=== PATIENT | female | born 1965 | race Caucasian/White ===

== ENCOUNTER 2018-12-06 10:38 | Emergency (ER) | payer BC ==
[~2018-12-06] VITALS: Ht 165.1 cm; Wt 69.4 kg
--- OUTSIDE RECORDS SUMMARY | 2018-12-06 10:41 | XMS REPORT | Clinical Summary ---
Author Author [facility] Organization [facility] Address Unknown Phone Unavailable Care Team Providers Care Curb Supervisor Name Role Phone Alina Agustin MD PCP Allergies Not on File Medications Not on file Active Problems Not on file Encounters Care Team Description Date Type Specialty Juana Foster MD Status post biopsy 05/01/2018 Hospital Radiology Encounter Juana Foster MD Breast lump on right side at 2 o'clock position 05/01/2018 Hospital Radiology Encounter Juana Foster MD Breast lump on right side at 2 o'clock position (Primary Dx) 04/23/2018 Transcribe Access Orders Juana Foster MD Abnormal mammogram 04/22/2018 Hospital Radiology Encounter Juana Foster MD Abnormal mammogram 04/22/2018 Hospital Radiology Encounter Juana Foster MD Abnormal mammogram (Primary Dx) 04/21/2018 Transcribe Access Orders Juana Foster MD Screening for osteoporosis 04/18/2018 Hospital Radiology Encounter Juana Foster MD Screening breast examination 04/18/2018 Hospital Radiology Encounter Juana Foster MD Screening for osteoporosis (Primary Dx); Screening breast examination 04/10/2018 Transcribe Access Orders after 12/05/2017 Social History Date Tobacco Use Types Packs/Day Years Used Never Assessed Sex Assigned at Date Recorded Not on file Industry Job Start Date Occupation Not on file Not on file Not on file Travel End Travel History Travel Start No recent travel history available. Last Filed Vital Signs Not on file Plan of Treatment Health Maintenance Due Date Last Done Comments CERVICAL CANCER SCREENING 1986 COLON CANCER SCREENING 2015 SHINGLES VACCINES (1 of 2015 2) INFLUENZA VACCINE 06/11/2018 BREAST CANCER SCREENING 04/22/2020 04/22/2018, 04/22/2018, 04/22/2018, Additional history exists Procedures Comments Procedure Name Priority Date/Time Associated Diagnosis SURGICAL PATHOLOGY Routine 05/01/2018 REQUEST 11:07 AM CDT MAMMO DIAGNOSTIC BIOPSY Routine 05/01/2018 Status post biopsy FOLLOW UP (NO CHARGE) 10:54 AM CDT US BREAST BIOPSY RIGHT Routine 05/01/2018 Breast lump on right side 10:28 AM CDT at 2 o'clock position US BREAST COMPLETE Routine 04/22/2018 Abnormal mammogram BILATERAL 9:03 AM CDT MAMMO BREAST DIAGNOSTIC Routine 04/22/2018 Abnormal mammogram TOMOSYNTHESIS RIGHT 8:39 AM CDT BONE DENSITY Routine 04/18/2018 Screening for 3:45 PM CDT osteoporosis MAMMO BREAST SCREEN Routine 04/18/2018 Screening breast TOMOSYNTHESIS BILATERAL 3:30 PM CDT examination after 12/05/2017 Results * Surgical pathology request (05/01/2018 11:07 AM CDT) [facility] DEPARTMENT OF PATHOLOGY AND GENOMIC MEDICINE Surgical pathology report See link below for PDF Lab [facility] DEPARTMENT OF Report PATHOLOGY AND GENOMIC MEDICINE Result status This is Final Report to [facility] DEPARTMENT OF [id number] PATHOLOGY AND GENOMIC MEDICINE Performing Organization Address City/State/Zipcode Phone Number [facility] DEPARTMENT [address] [place] [address] PATHOLOGY AND GENOMIC MEDICINE * Mammo Diagnostic Biopsy Follow Up (No Charge) (05/01/2018 10:54 AM CDT) Narrative Performed At EXAMINATION:US BREAST BIOPSY RIGHT, MAMMO DIAGNOSTIC BIOPSY FOLLOW UP [facility] COMPARISONS:04/22/2018 INDICATION:Right breast 3:00 lesion PROCEDURE: Following a discussion of potential risks, benefits and alternatives, the patient gave verbal and written informed consent for ultrasound-guided core-needle biopsy of the right breast with clip placement. A timeout was performed to verify the patient's name, date of , procedure and laterality. The patient was placed supine in the ultrasound intervention suite and the right breast was sterilely prepped and draped in the usual manner. 6 ml of lidocaine was administered subcutaneously for local anesthesia. Then, under direct and continuous sonographic guidance, a 14 gauge Achieve biopsy needle was advanced to the level of the target mass and a total of 3 core-biopsy specimens were obtained. The specimens were placed directly in Formalin for further pathologic review and a ribbon shaped biopsy marker clip was deployed at the biopsy site. Hemostasis was achieved. Post-procedure CC and LM imaging demonstrate appropriate clip deployment and position. There were no immediate complications. The patient tolerated the procedure well and was discharged from the department in stable condition with written discharge instructions. IMPRESSION: Technically successful ultrasound-guided core-needle biopsy of right breast 3:00 lesion. Ribbon shaped biopsy marker clip is appropriately positioned. Final pathology and addendum are pending. Pathology for right breast 3:00 lesion demonstrates fibrocystic changes, duct ectasia, microcysts formation, apocrine metaplasia and stromal fibrosis. No calcifications identified. No malignancy identified. Results are benign and concordant with imaging. Six-month follow-up right breast ultrasound recommended. [id number] Performing Organization Address City/State/Zipcode Phone Number [facility] [address] [place] [address] * US Breast Biopsy Right (05/01/2018 10:28 AM CDT) Narrative Performed At EXAMINATION:US BREAST BIOPSY RIGHT, MAMMO DIAGNOSTIC BIOPSY FOLLOW UP [facility] COMPARISONS:04/22/2018 INDICATION:Right breast 3:00 lesion PROCEDURE: Following a discussion of potential risks, benefits and alternatives, the patient gave verbal and written informed consent for ultrasound-guided core-needle biopsy of the right breast with clip placement. A timeout was performed to verify the patient's name, date of , procedure and laterality. The patient was placed supine in the ultrasound intervention suite and the right breast was sterilely prepped and draped in the usual manner. 6 ml of lidocaine was administered subcutaneously for local anesthesia. Then, under direct and continuous sonographic guidance, a 14 gauge Achieve biopsy needle was advanced to the level of the target mass and a total of 3 core-biopsy specimens were obtained. The specimens were placed directly in Formalin for further pathologic review and a ribbon shaped biopsy marker clip was deployed at the biopsy site. Hemostasis was achieved. Post-procedure CC and LM imaging demonstrate appropriate clip deployment and position. There were no immediate complications. The patient tolerated the procedure well and was discharged from the department in stable condition with written discharge instructions. IMPRESSION: Technically successful ultrasound-guided core-needle biopsy of right breast 3:00 lesion. Ribbon shaped biopsy marker clip is appropriately positioned. Final pathology and addendum are pending. Pathology for right breast 3:00 lesion demonstrates fibrocystic changes, duct ectasia, microcysts formation, apocrine metaplasia and stromal fibrosis. No calcifications identified. No malignancy identified. Results are benign and concordant with imaging. Six-month follow-up right breast ultrasound recommended. [email or web address] Performing Organization Address City/State/Zipcode Phone Number [facility] [address] [place] [address] * US Breast Complete Bilateral (04/22/2018 9:03 AM CDT) Addenda Addendum by Cesia Godoy MD on 04/23/2018 11:56 AM ADDENDUM #1 There is a typographical error in the recommendation of the report which should read as follows: RIGHT breast ultrasound-guided biopsy. Results and recommendations were discussed with the patient at the time of the ultrasound exam. The patient will be contacted by the breast care department to schedule for the biopsy. Orders for the correct RIGHT side for ultrasound-guided biopsy have been requested from ordering clinician. Narrative Performed At PROCEDURE: MAMMO BREAST DIAGNOSTIC TOMOSYNTHESIS RIGHT, US BREAST COMPLETE RADIANT BILATERAL Bilateral real-time whole breast sonography included all four quadrants and the retroareolar regions under close supervision by the radiologist. Right axillary sonography (level 1) was performed by the radiologist. Computer aided detection with tomosynthesis was utilized for the interpretation. HISTORY:52-year-old postmenopausal female recalled from screening mammography for a possible right breast mass. The patient reports current hormone replacement therapy use with estrogen and progesterone. COMPARISON: 04/18/2018-04/23/2013 DENSITY: The breast tissue is heterogeneously dense, which may obscure small masses. FINDINGS: MAMMOGRAM: There is a 1.2 cm oval mass at the right breast 3:00 location 3 cm from the nipple at middle depth, representing a correlate for the abnormality identified on screening mammography. There are a few scattered benign-appearing coarse calcifications in the right breast. ULTRASOUND: Right breast: Right whole breast sonography demonstrates a 1.2 x 0.4 x 0.6 cm complex cystic and solid mass at the right breast 3:00 location, 3 cm from the nipple, representing a sonographic correlate for the mammographic abnormality. No additional sonographic abnormality is identified in the right breast. Left breast: Left whole breast sonography demonstrates no suspicious sonographic abnormality. There is a subcentimeter benign-appearing oval circumscribed mildly complicated cyst at the left breast 12:00 location 4 cm from the nipple. Right axilla: Visualized portions of the right axilla are unremarkable. IMPRESSION: 1. The 1.2 cm complex cystic and solid mass at the right breast 3:00 location has a low suspicion for malignancy but for which precautionary ultrasound-guided biopsy is recommended to confirm benignity. 2. No sonographic evidence of malignancy in the left breast. 3.Visualized portions of the right axilla are unremarkable. RECOMMENDATION: Left breast ultrasound-guided biopsy. Results and recommendations were discussed with the patient at the time of the ultrasound exam. The patient will be contacted by the breast care department to schedule for the biopsy. BI-RADS 4:SUSPICIOUS. Tissue diagnosis is recommended. This facility is accredited by [employer] for Mammography. A negative x-ray report should not delay biopsy if a dominant or clinically suspicious mass is present.Not all cancers are identified by x-ray. [id number] Performing Organization Address City/State/Zipcode Phone Number [facility] [address] [place] [address] * Mammo Breast Diagnostic Tomosynthesis Right (04/22/2018 8:39 AM CDT) Addenda Addendum by Cesia Godoy MD on 04/23/2018 11:56 AM ADDENDUM #1 There is a typographical error in the recommendation of the report which should read as follows: RIGHT breast ultrasound-guided biopsy. Results and recommendations were discussed with the patient at the time of the ultrasound exam. The patient will be contacted by the breast care department to schedule for the biopsy. Orders for the correct RIGHT side for ultrasound-guided biopsy have been requested from ordering clinician. Narrative Performed At PROCEDURE: MAMMO BREAST DIAGNOSTIC TOMOSYNTHESIS RIGHT, US BREAST COMPLETE RADIANT BILATERAL Bilateral real-time whole breast sonography included all four quadrants and the retroareolar regions under close supervision by the radiologist. Right axillary sonography (level 1) was performed by the radiologist. Computer aided detection with tomosynthesis was utilized for the interpretation. HISTORY:52-year-old postmenopausal female recalled from screening mammography for a possible right breast mass. The patient reports current hormone replacement therapy use with estrogen and progesterone. COMPARISON: 04/18/2018-04/23/2013 DENSITY: The breast tissue is heterogeneously dense, which may obscure small masses. FINDINGS: MAMMOGRAM: There is a 1.2 cm oval mass at the right breast 3:00 location 3 cm from the nipple at middle depth, representing a correlate for the abnormality identified on screening mammography. There are a few scattered benign-appearing coarse calcifications in the right breast. ULTRASOUND: Right breast: Right whole breast sonography demonstrates a 1.2 x 0.4 x 0.6 cm complex cystic and solid mass at the right breast 3:00 location, 3 cm from the nipple, representing a sonographic correlate for the mammographic abnormality. No additional sonographic abnormality is identified in the right breast. Left breast: Left whole breast sonography demonstrates no suspicious sonographic abnormality. There is a subcentimeter benign-appearing oval circumscribed mildly complicated cyst at the left breast 12:00 location 4 cm from the nipple. Right axilla: Visualized portions of the right axilla are unremarkable. IMPRESSION: 1. The 1.2 cm complex cystic and solid mass at the right breast 3:00 location has a low suspicion for malignancy but for which precautionary ultrasound-guided biopsy is recommended to confirm benignity. 2. No sonographic evidence of malignancy in the left breast. 3.Visualized portions of the right axilla are unremarkable. RECOMMENDATION: Left breast ultrasound-guided biopsy. Results and recommendations were discussed with the patient at the time of the ultrasound exam. The patient will be contacted by the breast care department to schedule for the biopsy. BI-RADS 4:SUSPICIOUS. Tissue diagnosis is recommended. This facility is accredited by [employer] for Mammography. A negative x-ray report should not delay biopsy if a dominant or clinically suspicious mass is present.Not all cancers are identified by x-ray. [id number] Performing Organization Address City/State/Zipcode Phone Number [facility] [address] [place] [address] * Bone Density (04/18/2018 3:45 PM CDT) Narrative Performed At EXAMINATION:BONE DENSITY [facility] CLINICAL HISTORY:Z13.820 Encounter for screening for osteoporosis, SCREENING.Osteoporosis screening. COMPARISON:None. The results of this study expressed as bone mineral density (BMD) were as follows: AP spine (L1- L4) BMD: 1.100g/cm2 T-Score: -0.7 Percent Change:not applicable Dual Femur (Total Mean): BMD: 0.761g/cm2 T-Score: -2.0 Percent Change:not applicable Impression: Osteopenia femurs. Within range lumbar spine [id number] A copy of this scans including a report detailing these results will follow. Note: The world health organization (WHO) has classified the patient's T-score as follows: At or above (-1) as normal Between (-1) to (-2.5) as low (osteopenia) Below (-2.5) as abnormally low (osteoporosis, increased fracture risk) Dual femur FRAX: Risk factors: None. 10 year probability of fracture: 1.Major osteoporotic: 7.8 % 2.Hip: 1.4 % 3.Based on dual femur leftneck BMD Procedure Note Interface, Radiology Results - 04/18/2018 4:10 PM CDT EXAMINATION: BONE DENSITY CLINICAL HISTORY: Z13.820 Encounter for screening for osteoporosis, SCREENING. Osteoporosis screening. COMPARISON: None. The results of this study expressed as bone mineral density (BMD) were as follows: AP spine (L1- L4) BMD: 1.100 g/cm2 T-Score: -0.7 Percent Change: not applicable Dual Femur (Total Mean): BMD: 0.761 g/cm2 T-Score: -2.0 Percent Change: not applicable Impression: Osteopenia femurs. Within range lumbar spine [id number] A copy of this scans including a report detailing these results will follow. Note: The world health organization (WHO) has classified the patient's T-score as follows: At or above (-1) as normal Between (-1) to (-2.5) as low (osteopenia) Below (-2.5) as abnormally low (osteoporosis, increased fracture risk) Dual femur FRAX: Risk factors: None. 10 year probability of fracture: 1. Major osteoporotic: 7.8 % 2. Hip: 1.4 % 3. Based on dual femur left neck BMD Performing Organization Address City/State/Zipcode Phone Number [facility] [address] [place] [address] * Mammo Breast Screen Tomosynthesis Bilateral (04/18/2018 3:30 PM CDT) Narrative Performed At PROCEDURE: MAMMO BREAST SCREEN TOMOSYNTHESIS BILATERAL [facility] Computer aided detection was utilized for the interpretation of the digital bilateral screening mammography with tomosynthesis. COMPARISON: 06/09/2015-04/23/2013. INDICATION: Routine screening. FINDINGS: The breast are hetergenously dense, which may obscure small masses. There is a 1.1 cm possible mass/asymmetry in the right inferior breast and seen best on the MLO tomosynthesis view only. No significant interval change is identified in the left breast. IMPRESSION:1.1 cm possible mass/asymmetry in the right breast. RECOMMENDATION: Additional evaluation with a right diagnostic mammogram and ultrasound if indicated. BI-RADS 0: INCOMPLETE. NEED ADDITIONAL IMAGING This facility is accredited by The [employer] for Mammography. A negative x-ray report should not delay biopsy if a dominant or clinically suspicious mass is present. Not all cancers are identified by x-ray. [id number] Performing Organization Address City/State/Zipcode Phone Number [facility] [address] [place] [address] after 12/05/2017 Insurance Payer Benefit Subscriber ID Type Phone Address Plan / Group BCBS BCBS xxxxxxxxxxxx PPO CHOICE PPO/NAGI RUDD PPO Advance Directives Patient has advance care planning documents on file. For more information, minal wheeler contact: Huber Cartwright [address] [place] [address]
[2018-12-06] MEDS ORDERED: KETOROLAC TROMETHAMINE 60 MG/2 ML VIAL IM NR (11:00)
[2018-12-06] MEDS ORDERED: MORPHINE SULFATE 2 MG/ML SYR 1ML IM NR (11:00)
== END 2018-12-06 11:45 | disposition home or self-care (01) ==
LOC: FSED 10:38
DX: M54.42 Lumbago with sciatica, left side (principal)
CPT/HCPCS: 99283

== ENCOUNTER 2021-01-30 18:22 | Emergency (ER) | payer BC ==
[~2021-01-30] VITALS: Ht 165.1 cm; Wt 69.4 kg
[2021-01-30] MEDS ORDERED: SODIUM CHLORIDE 0.9% 1000ML 1,000 ML IV STA (19:26)
[2021-01-30] MEDS ORDERED: IBUPROFEN IB200 MG PO (19:29)
[2021-01-30] MEDS ORDERED: CEFDINIR300 MG PO (19:29)
[2021-01-30] MEDS ORDERED: CEFTRIAXONE SOD 1 GM VIAL IV ONE (19:30)
[2021-01-30] MEDS ORDERED: KETOROLAC TROMETHAMINE 30 MG/ML VIAL IV ONE (19:30)
[2021-01-30] MEDS ORDERED: SODIUM CHLORIDE 0.9% 1000ML 1,000 ML ONE (19:38)
[2021-01-30] MEDS ORDERED: CEFTRIAXONE SOD 1 GM 50 ML IV ONE (19:38)
[2021-01-30] MEDS ORDERED: KETOROLAC TROMETHAMINE 30 MG/ML VIAL ONE (19:38)
[2021-01-30 21:52] LABS: FREE THYROXINE INDEX 2.4279 (1.4-3.8); THYROID STIMULATING HORMONE 0.978 uIU/mL (0.350-4.940)
== END 2021-01-30 20:20 | disposition home or self-care (01) ==
LOC: FSED 19:00
DX: N39.0 Urinary tract infection, site not specified (principal); R00.0 Tachycardia, unspecified; R00.2 Palpitations; R94.31 Abnormal electrocardiogram [ECG] [EKG]; F41.9 Anxiety disorder, unspecified
CPT/HCPCS: 36415; 71045; 80053; 81003; 82553; 83880; 84436; 84443; 84479; 84484; 93005; 99284; J0696; J1885; J7030

== ENCOUNTER 2022-10-05 12:40 | Emergency (ER) | payer BC ==
[~2022-10-05] VITALS: Ht 165.1 cm; Wt 68.3 kg
[~2022-10-05 12:40] MED LIST: CEFDINIR300 MG PO; IBUPROFEN IB200 MG PO
[2022-10-05] MEDS ORDERED: AZITHROMYCIN250 MG PO (14:05)
[2022-10-05] MEDS ORDERED: ONDANSETRON ODT4 MG PO (14:05)
[2022-10-05] MEDS ORDERED: BROMFED DM COU118 ML PO (14:05)
[2022-10-05] MEDS ORDERED: VENTOLIN HFA18 GM INH (14:05)
[2022-10-05] MEDS ORDERED: MEDROL4 MG PO (14:05)
== END 2022-10-05 14:17 | disposition home or self-care (01) ==
LOC: FSED 12:43
DX: R05.9 Cough, unspecified (principal); J40 Bronchitis, not specified as acute or chronic; F41.9 Anxiety disorder, unspecified
CPT/HCPCS: 71046; 87400; 99283